=== PATIENT | female | born 1995 | race Caucasian/White ===

== ENCOUNTER 2016-08-01 00:32 | Emergency (ER) | payer SELFPAY ==
[2016-08-01] MEDS ORDERED: CLINDAMYCIN HCL 150 MG CAPSULE PO ONE (01:42)
[2016-08-01] MEDS ORDERED: CLINDAMYCIN HCL 150 MG CAPSULE ONE (01:46)
--- NOTE | 2016-08-01 01:50 | ERNOTE ---
Integumentary HPI - General Presenting Symptoms: abscess Time Seen by Provider: 08/01/16 01:19 Source: patient Exam Limitations: no limitations - Immun/Allergies/Home Medications Immunizations: IMMUNIZATION HX Immunizations Up to Date Yes History of Influenza Vaccine No Hx Pneumococcal Vaccination No Allergies/Adverse Reactions: Allergies Allergy/AdvReac Type Severity Reaction Status Date / Time cephalexin Allergy Verified 08/01/16 00:59 Home Medications: HOME MEDICATIONS Ascorbic Acid [Vitamin C] 1,000 mg PO DAILY 08/01/16 [Last Taken Unknown] Clindamycin HCl [Cleocin HCl] 300 mg PO TID #30 capsule 08/01/16 [Last Taken Unknown] Cyanocobalamin (Vitamin B-12) [Vitamin B12] 5,000 mcg PO DAILY 08/01/16 [Last Taken Unknown] Vitamin A 8,000 unit PO DAILY 08/01/16 [Last Taken Unknown] - History of Present Illness Location: Reports: torso Quality: Reports: painful Severity: moderate Exposure: Reports: no cause identified Modifying Factors - (Improves): Reports: nothing Associated Symptoms: Reports: denies symptoms Review of Systems - Review of Systems Constitutional: Absent: fever, chills EYE: Present: no symptoms reported ENT: Present: no symptoms reported Respiratory: Present: no symptoms reported Cardiology: Present: no symptoms reported Gastrointestinal/Abdominal: Present: no symptoms reported Genitourinary: Present: no symptoms reported Musculoskeletal: Present: no symptoms reported Skin: Present: See HPI Neurological: Present: no symptoms reported Endocrine: Present: no symptoms reported Hematologic/Lymphatic: Present: no symptoms reported Psych: Present: no symptoms reported - Patient's Past Medical History Patient History - Medical: No pertinent hx Patient History - Cardiac/Respiratory: No pertinent hx Patient History - Cancer: No Hx of Cancer Patient History - Surgical Procedures: T & A Patient History - Other: None LMP (females 10-50): 3 weeks LMP (Calendar): 07/12/16 - Social History Living Situations: significant other Abuse History: No History of abuse Psych History: Hx of Anxiety Smoking Status: Never smoker Alcohol Use: occasionally Drug Use: none - Immunizations Immunizations Up to Date: Yes Hx Pneumococcal Vaccination: No History of Influenza Vaccine: No Physical Exam - Physical Exam General Appearance: Present: wd/wn, alert, no apparent distress Eye Exam: Normal inspection: bilateral Ears, Nose, Throat: Present: hearing grossly normal Neck: Present: normal inspection Respiratory: Present: no respiratory distress, no accessory muscle use Gastrointestinal/Abdominal: Present: nontender - except around abscess, lower midline (see skin) Back Exam: Present: normal inspection, normal range of motion Extremity Exam: Present: normal inspection Neurological Exam: Present: alert, oriented, normal mood/affect Skin Exam: Present: other - Midline approx 2 cm below the umbilicus, 3 cm wide 1 cm sup/inf indurated and bruised pustule. No drainage Lymphatic Exam: Present: no adenopathy ED Progress - Vital Signs Vital Signs: Vital Signs 08/01/16 00:45 Temperature 37.0 C Pulse Rate 98 Respiratory 16 Rate Blood Pressure 160/97 O2 Sat by Pulse 99 Oximetry - Progress/Reassessment Chief Complaint: Abscess Procedures Lower Abdomen Date and Time: 08/01/16 01:40 I & D of abscess of lower abdomen Anesthesia: 1% Lidocaine, Local I & D Prep: betadine prep Blade Size: 11 Findings and Actions: purulent drainage moderate, probed/breakup loculation, cultures obtained, other - flushed with saline Estimated blood loss (ml): 10 Complications: Pt edwin procedure well Departure Clinical Impression: Abscess - Departure Disposition: Home Follow Up Needed Condition: Good Instructions: Incision and Drainage, Care After Additional Instructions: wash the wound with gentle soap and water twice a day Referrals: Stephanie Condon MD [Primary Care Provider] - Prescriptions: Clindamycin HCl [Cleocin HCl] 300 mg PO TID #30 capsule
[2016-08-01 01:59] VITALS: BP 152/71
--- OUTSIDE RECORDS SUMMARY | 2016-08-01 02:03 | XMS REPORT | Continuity of Care Document ---
:1995 Author Organization [facility] ([facility]) Address [address] [place] [address] Phone [phone] Care Team Providers Name Role Phone Provider, No-Primary Care Primary Care Provider Unavailable Source Comments This disclosure is being made pursuant to the Care Everywhere program, applicable federal and state laws, and may not contain all informaitonavailable regarding this patient.[facility] ([facility]) Active Allergies and Adverse Reactions Allergen Noted Date Severity Reactions Comments Cephalexin 12/09/2013 Urticaria (Hives) Current Medications Prescription Sig. Disp. Refills Start Date End Date Status HYDROcodone-acetamino Take 1 Tab by mouth 20 Tab 0 12/09/2013 Active phen 5-325 mg per every 4 hours as tablet needed for Pain. DO NOT EXCEED 3,000 MG ACETAMINOPHEN PER DAY FROM ALL SOURCES Indications: PAIN ibuprofen 800 mg Take 1 Tab by mouth 20 Tab 0 12/09/2013 Active tablet every 6 hours as needed for Pain. DO NOT EXCEED 3,200 MG IBUPROFEN PER DAY FROM ALL SOURCES Indications: PAIN Active Problems Not on file Social History Tobacco Use Types Packs/Day Years Used Date Former Smoker Cigarettes Quit: 12/09/2012 Smokeless Tobacco: Never Used Alcohol Use Drinks/Week oz/Week Comments No Last Filed Vital Signs Vital Sign Reading Time Taken Blood Pressure 124/54 12/09/2013 11:26 AM CDT Pulse - - Temperature 37 C (98.6 F) 12/09/2013 9:00 AM CDT Respiratory Rate - - Height 1.727 m (5' 8") 12/09/2013 8:55 AM CDT Weight 124.286 kg (274 lb) 12/09/2013 8:55 AM CDT Body Mass Index 41.67 12/09/2013 8:55 AM CDT Oxygen Saturation 99% 12/09/2013 11:26 AM CDT Plan of Care Health Maintenance Due Date Last Done Comments Hepatitis B Vaccine (1 of 3 - Primary Series) 1994 HPV Vaccine (1 of 3 - Female/Unknown 3 Dose Series) 2005 Tdap Vaccine 2005 Meningococcal Vaccine (1 of 1) 2010 Cervical Cancer Screening 2012 Lipid Disorder Screening 2012 MMR Vaccine 2012 Td Vaccine 2012 Varicella Vaccine (1 of 2 - Adult - No Evidence of 2012 Immunity) Influenza Vaccine: Seasonal (#1) 01/03/2016 Results from Last 3 Months Not on file
== END 2016-08-01 01:58 | disposition home or self-care (01) ==
LOC: ER 00:32
PROC: 0H97XZZ Drainage of Abdomen Skin, External Approach (ICD-10-PCS; principal; 2016-08-01)
DX: L02.211 Cutaneous abscess of abdominal wall (principal)

== ENCOUNTER 2016-12-30 03:46 | Emergency (ER) | payer OTHER ==
[2016-12-30 04:50] LABS: Hematocrit 39.4 % (37.0-47.0); Hemoglobin 12.5 gm/dL (12.5-16.0); Mean Cell Volume 77.3 fl (78-100); Mean Corpuscular Hemoglobin 24.5 pg (27-31); Mean Corpuscular Hgb Conc 31.7 g/dl (32-36); Mean Platelet Volume 9.7 fl (6.0-9.5); Neutrophil # 8.1 K/mm3 (1.3-6.0); Neutrophil % 72.3 % (42-75.0); Platelet Count 292 K/mm3 (150-450); Red Cell Distribution Width 15.9 % (11.5-14.0); Urine Bilirubin Negative (NEGATIVE); Urine Ketone Negative (NEGATIVE); Urine Nitrite Negative (NEGATIVE); Urine Protein Negative (NEGATIVE); Urine Specific Gravity 1.015 SP.GR. (1.005-1.010); Urine Urobilinogen Normal (NORMAL); Urine pH 6.5 pH (5.0-7.0); White Blood Count 11.2 K/mm3 (4.0-10.5)
[2016-12-30 05:00] LABS: Urine Amorphous Sediment Many - 3+ (NONE-FEW); Urine Appearance Cloudy; Urine Bacteria 3+; Urine Blood Negative /ul (NEGATIVE); Urine Color Dark Yellow; Urine Mucus Few - 1+
[2016-12-30 05:05] LABS: Albumin * 2.2 gm/dl (3.4-5.0); Anion Gap 13.1 mmol/L (6.8-13.8); BUN/Creatinine Ratio 16.1 (9.0-21.6); Bilirubin, Total 0.2 mg/dL (0.0-1.1); Ca. Corrected For Albumin 9.2 mg/dL (8.4-10.2); Calcium * 8.1 mg/dL (7.9-10.9); Carbon Dioxide 23.9 mmol/L (24-32.6); Total Protein 6.7 gm/dL (6.2-8.2)
--- NOTE | 2016-12-30 05:48 | ERNOTE ---
GI Bleeding/Rectal Pain ER Date of Service: 12/30/16 Presenting Symptoms: rectal bleeding, other - rectal cramping is noted. Time Seen by Provider: 12/30/16 05:13 Source: patient Immunizations: IMMUNIZATION HX Immunizations Up to Date Yes History of Influenza Vaccine No Hx Pneumococcal Vaccination No Allergies/Adverse Reactions: Allergies cephalexin Allergy (Verified 12/30/16 04:10) Home Medications: HOME MEDICATIONS Ascorbic Acid [Vitamin C] 500 mg PO DAILY 12/30/16 [Last Taken Unknown] Biotin 5,000 mcg PO DAILY 12/30/16 [Last Taken Unknown] Ferrous Sulfate [Iron] 325 mg PO DAILY 12/30/16 [Last Taken Unknown] Phenylephrine HCl/[place] Butter [Hemorrhoidal Suppositories] 1 each RC QPM PRN # 20 supp.rect 12/30/16 [Last Taken Unknown] Pnv95/Iron Fum/Folic Acid [ Vitamin Tablet] 1 each PO DAILY 12/30/16 [ Last Taken Unknown] Narrative: Patient is a 21-year-old female established patient of, [employer]TAIN doctor Lasha. she is a female approximately 24 weeks EDC of March 18 of April 18. She reports that on Sunday she had some blood mixed in with her stool by Sunday she had several spells of stools approximately 2:30 this morning she had a pretty severe rectal bleeding with significant cramping. She denies any vaginal bleeding. Date (Duration): 12/27/16 Time (Timing): 08:00 Timing: getting worse Quality/Severity: Present: severe Date of Last Bowel Movement: 12/30/16 Nausea/Vomiting: Present: other - no associated nausea vomiting or abdominal pain. She denies any periumbilical pain. Rectal Bleeding: Present: other - she reports some blood-streaked stools. And associated rectal cramping. Associated Symptoms: Reports: back pain, rectal pain, diarrhea. Denies: light headedness Prior Treament: Reports: recently seen Review of Systems - Narrative Narrative: Review of system reveals the following. - Review of Systems Constitutional: Present: no symptoms reported, recent illness. Absent: malaise , weight loss, decreased activity level EYE: Present: no symptoms reported, blurred vision, double vision ENT: Present: no symptoms reported Respiratory: Present: no symptoms reported Cardiology: Present: no symptoms reported Gastrointestinal/Abdominal: Present: no symptoms reported Genitourinary: Present: no symptoms reported Musculoskeletal: Present: no symptoms reported Skin: Present: no symptoms reported Neurological: Present: no symptoms reported Endocrine: Present: no symptoms reported Hematologic/Lymphatic: Present: no symptoms reported Psych: Present: no symptoms reported All Other Systems: All systems neg except as marked - Narrative Narrative: Past medical history, past surgical history medications allergies family history and past social history were reviewed. - Patient's Past Medical History Patient History - Medical: No pertinent hx Patient History - Cardiac/Respiratory: No pertinent hx Patient History - Cancer: No Hx of Cancer Patient History - Surgical Procedures: T & A Patient History - Other: None LMP (females 10-50): LMP (Calendar): 07/12/16 - Social History Living Situations: home Abuse History: No History of abuse Psych History: Hx of Anxiety Smoking Status: Never smoker Have you smoked in the past 12 months: No Do you dip or chew tobacco: No Patient requests Smoking Cessation Consult: No Alcohol Use: none Drug Use: none - Immunizations Immunizations Up to Date: Yes Hx Pneumococcal Vaccination: No History of Influenza Vaccine: No Physical Exam - Physical Exam Narrative: no distress. General Appearance: Present: wd/wn, alert, no apparent distress Head Exam: Present: normal inspection, no evidence of injury Eye Exam: Normal inspection: bilateral, PERRL: bilateral, EOMI: bilateral Ears, Nose, Throat: Present: normal ENT inspection, normal pharynx Neck: Present: normal inspection, nontender Respiratory: Present: no respiratory distress, normal breath sounds, no accessory muscle use, chest nontender, lungs clear Cardiovascular/Chest: Present: regular rate, rhythm, no murmur, normal peripheral pulses Peripheral Pulses: N=norm/S=strong/W=weak/B=bound/A=absent: Carotid (R): Normal , Carotid (L): Normal Gastrointestinal/Abdominal: Present: normal bowel sounds, nondistended Skin Exam: Present: normal color, warm/dry Lymphatic Exam: Present: no adenopathy ED Progress - Results and Orders Patient's Lab Results:: I have reviewed the patient's lab results. Results and Orders: Laboratory Tests 12/30/16 12/30/16 12/30/16 04:40 04:40 04:40 WBC 11.2 H RBC 5.10 Hgb 12.5 Hct 39.4 MCV 77.3 L MCH 24.5 L MCHC 31.7 L RDW 15.9 H Plt Count 292 MPV 9.7 H Immature Gran % (Auto) 0.40 Immature Gran # (Auto) 0.05 H Neutrophils % 72.3 Lymphocytes % 20.5 Monocytes % 5.2 Eosinophils % 1.3 Basophils % 0.3 Nucleated RBC % 0.0 Neutrophils # 8.1 H Lymphocytes # 2.3 Monocytes # 0.6 Eosinophils # 0.2 Absolute Basophils 0.0 Sodium 140 Potassium 4.0 Chloride 107 H Carbon Dioxide 23.9 L Anion Gap 13.1 BUN 9 Creatinine 0.56 Est GFR (Non-Af Amer) 144 H D BUN/Creatinine Ratio 16.1 Random Glucose 88 Calcium 8.1 Calcium Adj for Albumin 9.2 Total Bilirubin 0.2 AST 17 ALT 28 Alkaline Phosphatase 89 Total Protein 6.7 Albumin 2.2 L Urine Color Dark yellow Urine Appearance Cloudy Urine pH 6.5 Ur Specific [place] 1.015 Urine Protein Negative Urine Glucose (UA) Negative Urine Ketones Negative Urine Blood Negative Urine Nitrate Negative Urine Bilirubin Negative Urine Urobilinogen Normal Ur Leukocyte Esterase 75 H Urine RBC 5-10 H Urine WBC 5-10 H Ur Epithelial Cells 10-25 H Amorphous Sediment Many - 3+ H Urine Bacteria 3+ H Urine Mucus Few - 1+ H - Vital Signs Patient's Vital Signs:: I have reviewed the patient's vital signs. Vital Signs: Vital Signs 12/30/16 12/30/16 04:03 04:30 Temperature 36.2 C L 36.2 C L Pulse Rate 89 89 Respiratory 18 18 Rate Blood Pressure 152/93 152/93 O2 Sat by Pulse 97 Oximetry - Progress/Reassessment Chief Complaint: Rectal Bleeding Progress:: Re-examined - on digital rectal examination did not find any evidence of bleeding. Right red blood per rectum. Plan - Plan Plan: Patient has done stress testing at the request of the HUMAN SERVICES MANAGER and that was done 30 minutes prior to my digital rectal examination there is evidence of heart tones 150s to 165. No evidence of contractions were noted then I went ahead and did the digital rectal examination after completion of an NST Departure Clinical Impression: Internal and external bleeding hemorrhoids - Departure Disposition: Home self-care Condition: Good Instructions: High-Fiber Diet Referrals: Srinath Bone DO [Primary Care Provider] - Prescriptions: Phenylephrine HCl/[place] Butter [Hemorrhoidal Suppositories] 1 each RC QPM PRN # 20 supp.rect PRN Reason: Constipation
[2016-12-30 07:43] VITALS: BP 132/84
== END 2016-12-30 07:48 | disposition home or self-care (01) ==
LOC: ER 03:46
DX: K64.4 Residual hemorrhoidal skin tags (principal); K64.8 Other hemorrhoids; Z33.1 Pregnant state, incidental; Z3A.24 24 weeks gestation of pregnancy

== ENCOUNTER 2017-03-28 00:05 | Inpatient (IN) | payer OTHER ==
[2017-03-28] MEDS ORDERED: OXYTOCIN/DEXTROSE 5%-WATER 30 UNITS/500 ML BAG IV ONE (01:29)
[2017-03-28] MEDS ORDERED: RINGER'S SOLUTION,LACTATED 1,000 ML IV ONE (01:29)
[2017-03-28] MEDS ORDERED: ONDANSETRON HCL/PF 2 MG/ML VIAL IV PRN ×2 (01:29→22:28)
[2017-03-28] MEDS ORDERED: LIDOCAINE HCL 50 ML VIAL PERI PRN (01:29)
[2017-03-28 01:43] LABS: Hematocrit 41.4 % (37.0-47.0); Hemoglobin 13.5 gm/dL (12.5-16.0); Mean Cell Volume 80.4 fl (78-100); Mean Corpuscular Hemoglobin 26.2 pg (27-31); Mean Corpuscular Hgb Conc 32.6 g/dl (32-36); Mean Platelet Volume 10.2 fl (6.0-9.5); Neutrophil # 11.5 K/mm3 (1.3-6.0); Neutrophil % 77.5 % (42-75.0); Platelet Count 288 K/mm3 (150-450); Red Blood Count 5.15 M/mm3 (4.2-5.4); Red Cell Distribution Width 16.1 % (11.5-14.0); White Blood Count 14.9 K/mm3 (4.0-10.5)
[2017-03-28 01:57] LABS: Albumin * 2.3 gm/dl (3.4-5.0); Anion Gap 11.8 mmol/L (6.8-13.8); BUN/Creatinine Ratio 12.7 (9.0-21.6); Bilirubin, Total 0.1 mg/dL (0.0-1.1); Ca. Corrected For Albumin 9.6 mg/dL (8.4-10.2); Calcium * 8.6 mg/dL (7.9-10.9); Carbon Dioxide 23.2 mmol/L (24-32.6); Total Protein 7.1 gm/dL (6.2-8.2)
[2017-03-28] MEDS ORDERED: PENICILLIN G POTASSIUM 5 MILLIONUNT in DEXTROSE 5 % IN WATER 100 ML IV ONE ×2 (02:00)
[2017-03-28] MEDS: MISOPROSTOL 100 MCG TABLET VG PRN ×3 (02:07→10:34)
[2017-03-28 04:12] LABS: Cocaine Ur Negative (NEGATIVE); Urine Barbiturate Negative (NEGATIVE); Urine Benzodiazepines Negative (NEGATIVE); Urine Opiates Negative (NEGATIVE); Urine PCP Negative (NEGATIVE); Urine THC Negative (NEGATIVE)
[2017-03-28] MEDS: PENICILLIN G POTASSIUM 2.5 MILLIONUNT in DEXTROSE 5 % IN WATER 100 ML IV SCH ×10 (06:55→21:58)
--- NOTE | 2017-03-28 07:06 | PN ---
Progess Note - Interim Narrative: 03/28/17 07:04 Patient starting to feel some of her contractions Vital signs stable. Status post 1 dose of Cytotec 25 g FHT: 120 baseline, reassuring Contractions irregular Cervix: 3, second dose of Cytotec 25 g placed vaginally Impression: Intrauterine at 37 weeks induction of labor for gestational hypertension/preeclampsia Plan: Continue present plan
[2017-03-28] MEDS ORDERED: NALOXONE HCL 1 MG/1 ML SYRG IV PRN (22:28)
[2017-03-28] MEDS ORDERED: fentaNYL CITRATE/PF 50 MCG/ML AMPUL ONE (22:41)
[2017-03-28] MEDS: fentaNYL CITRATE/PF 50 MCG/ML AMPUL IT SCH (23:00)
[2017-03-28] MEDS: DEXTROSE 5%-LACTATED RINGERS 1,000 ML IV PRN (23:08)
--- NOTE | 2017-03-28 23:15 | OR ---
Anesthesia Procedure Note - Anesthesia Procedure Note Narrative: Vital Signs - Last Taken Temp 35.5 C L 03/28/17 22:46 Pulse 79 03/28/17 22:46 Resp 18 03/28/17 22:46 BP 179/80 03/28/17 22:46 Pulse Ox 98 03/28/17 22:46 03/28/17 23:14 ANESTHESIA PROCEDURE NOTE Date of Procedure: 03/28/2017 Time of procedure: 2305. Performed by: Theodore Linton CRNA Gis Geographer: None. Preprocedure diagnosis: Active labor. Post procedure diagnosis: Same. Procedure: Insertion of labor epidural. Indications: The patient is a 21 -year-old multigravida female in active labor requesting labor epidural for pain management. Findings: See below. Details of the procedure: The patient was placed in a sitting position. Back was prepped with DuraPrep. Patient was then draped in a sterile fashion. Lidocaine 1% was infiltrated to the skin and subcutaneous tissues at the level of the L3 4 interspace. The epidural space was identified using a 18-gauge Tuohy needle with [id number] technique. 20 mcg fentanyl was given intrathecally using a 27 ga. spinal needle. Epidural catheter was inserted without difficulty. Negative test dose was elicited using 5 mL of 1.5% preservative-free lidocaine plus epinephrine 1 200,000. The epidural catheter was then taped and secured in place. EBL: Minimal. Fluids: N/A. Specimen: N/A. Post procedure condition: The patient tolerated the procedure well. No complications were noted. Thank you for this consultation. Edwards CRNA
[2017-03-28] MEDS ORDERED: BUPIVACAINE HCL/0.9 % NACL/PF 250 ML CARTRIDGE ONE (23:24)
[2017-03-28] MEDS ORDERED: BUPIVACAINE HCL/0.9 % NACL/PF 250 ML EP PRN (23:28)
[2017-03-29] MEDS: PENICILLIN G POTASSIUM 2.5 MILLIONUNT in DEXTROSE 5 % IN WATER 100 ML IV SCH ×8 (02:29→13:58)
[2017-03-29] MEDS ORDERED: fentaNYL CITRATE/PF 50 MCG/ML AMPUL IT ONE (04:49)
[2017-03-29] MEDS ORDERED: fentaNYL CITRATE/PF 50 MCG/ML AMPUL ONE (04:52)
[2017-03-29] MEDS: fentaNYL CITRATE/PF 50 MCG/ML AMPUL IT SCH (05:04)
[2017-03-29] MEDS: DEXTROSE 5%-LACTATED RINGERS 1,000 ML IV PRN ×2 (05:06→13:37)
--- NOTE | 2017-03-29 05:24 | OR ---
Anesthesia Procedure Note - Anesthesia Procedure Note Narrative: Vital Signs - Last Taken Temp 35.5 C L 03/28/17 22:46 Pulse 79 03/28/17 22:46 Resp 18 03/28/17 22:46 BP 179/80 03/28/17 22:46 Pulse Ox 98 03/28/17 22:46 03/29/17 05:20 ANESTHESIA PROCEDURE NOTE Date of Procedure: 03/29/2017 Time of procedure: 10 11. Performed by: Theodore Linton CRNA Home Agent: None. Preprocedure diagnosis: Active labor. Post procedure diagnosis: Same. Procedure: Reinsertion of labor epidural. Indications: Patient complains of labor pain. On examination it is noted that indwelling epidural catheter has migrated out of the epidural space. Epidural catheter was removed intact. And new epidural placed as below Findings: See below. Details of the procedure: The patient was placed in a sitting position. Back was prepped with DuraPrep. Patient was then draped in a sterile fashion. Lidocaine 1% was infiltrated to the skin and subcutaneous tissues at the level of the L L2 3 interspace. The epidural space was identified using a 18-gauge Tuohy needle with [id number] technique. 20 mcg fentanyl was given intrathecally using a 27 ga. spinal needle. Epidural catheter was inserted without difficulty. Negative test dose was elicited using 5 mL of 1.5% preservative-free lidocaine plus epinephrine 1 200,000. The epidural catheter was then taped and secured in place. EBL: Minimal. Fluids: N/A. Specimen: N/A. Post procedure condition: The patient tolerated the procedure well. No complications were noted. Thank you for this consultation. Edwards CRNA
--- NOTE | 2017-03-29 12:51 | PN ---
Progess Note - Interim Narrative: 03/29/17 12:49 Patient comfortable with epidural Vital signs stable. Systolic blood pressures running from 130s to 150s, diastolic blood pressures running 60s to 100. Pitocin at 6 mu/min. FHT: 130 baseline, reassuring Contractions q 2-4 min Cervix: 3/60/-3, AROM-clear at 1210 Impression: Intrauterine at 37-1/7 weeks induction of labor for preeclampsia/gestational hypertension Plan: Continue present plan
[2017-03-29] MEDS ORDERED: SENNOSIDES 8.6 MG TABLET PO PRN (16:54)
[2017-03-29] MEDS ORDERED: BISACODYL 10 MG SUPP.RECT RC PRN (16:54)
[2017-03-29] MEDS ORDERED: BENZOCAINE/MENTHOL 81 SPRAY CAN TP PRN (16:54)
[2017-03-29] MEDS ORDERED: OXYTOCIN/DEXTROSE 5%-WATER 30 UNITS/500 ML BAG IV ONE (16:54)
[2017-03-29] MEDS ORDERED: GLYCERIN/WITCH HAZEL LEAF 40 APPL BOX TP PRN (16:54)
[2017-03-29] MEDS ORDERED: HYDROCORTISONE 30 APPL TUBE TP PRN (16:54)
[2017-03-29] MEDS ORDERED: oxyCODONE HCL/ACETAMINOPHEN 1 TAB TABLET PO PRN ×2 (16:54)
--- NOTE | 2017-03-29 17:08 | OR ---
Operative Report - Dictated Report Narrative: Spontaneous vaginal deliver of viable male on 03/29/17 at 16:35 with APGARs of 8 and 9, weighing 2826g in NEGRITA position. Cord clamping was delayed approximately one minute. Placenta was delivered complete, intact, with a three vessel cord. Estimated blood loss: less than 100 mL Lacerations: Small periurethral abrasion no repair needed
[2017-03-29] MEDS: IBUPROFEN 800 MG TABLET PO PRN (20:47)
[2017-03-29] MEDS: DOCUSATE SODIUM 100 MG CAPSULE PO SCH (20:47)
[2017-03-30] MEDS: IBUPROFEN 800 MG TABLET PO PRN ×2 (03:36→09:35)
[2017-03-30] MEDS: DOCUSATE SODIUM 100 MG CAPSULE PO SCH ×2 (09:24→22:43)
[2017-03-31] MEDS: IBUPROFEN 800 MG TABLET PO PRN ×2 (01:40→16:28)
[2017-03-31] MEDS: DOCUSATE SODIUM 100 MG CAPSULE PO SCH (10:15)
[2017-03-31 10:28] VITALS: BP 135/81
--- NOTE | 2017-03-31 11:47 | PN ---
Progess Note - Interim Narrative: 03/31/17 11:46 progress note Subjective: The patient is doing well. She is ambulating, voiding, tolerating by mouth. She has minimal pain and moderate lochia. Denies headache, blurry vision, epigastric pain, or edema. Objective: General: No acute distress Abdomen: Soft, nontender, fundus is firm just below the umbilicus Extremities: minimal edema, nontender to palpation Assessment and plan: day 2 Feeding: Breast Pain: Controlled with by mouth medication Preeclampsia: Blood pressures have normalized, asymptomatic Follow-up in 1 week for blood pressure check Routine care.
--- NOTE | 2017-04-05 17:50 | PN ---
Progess Note - Interim Narrative: 04/05/17 17:50 Late entry for patient seen on 03/30/2017 Patient denies complaints. Lochia wnl Abdomen - soft, nontender Uterus - firm, at umbilicus - 1 No calf tenderness Impression: day #1 - s/p spontaneous vaginal delivery. Plan: Continue routine care
== END 2017-03-31 16:35 | disposition home or self-care (01) | DRG 775 ==
LOC: OB 00:05 → MS 03-30 09:39
PROVIDERS: ADMIT Obstetrics & Gynecology; ATTEND Obstetrics & Gynecology
PROC: 10E0XZZ Delivery of Products of Conception, External Approach (ICD-10-PCS; principal; 2017-03-29)
PROC: 10907ZC Drainage of Amniotic Fluid, Therapeutic from Products of Conception, Via Natural or Artificial Opening (ICD-10-PCS; 2017-03-29)
PROC: 4A1HXCZ Monitoring of Products of Conception, Cardiac Rate, External Approach (ICD-10-PCS; 2017-03-29)
PROC: 00HU33Z Insertion of Infusion Device into Spinal Canal, Percutaneous Approach (ICD-10-PCS; 2017-03-29)
DX: O14.94 Unspecified pre-eclampsia, complicating childbirth (principal); Z68.42 Body mass index [BMI] 45.0-49.9, adult; O13.4 Gestational [pregnancy-induced] hypertension without significant proteinuria, complicating childbirth; O99.824 Streptococcus B carrier state complicating childbirth; O99.214 Obesity complicating childbirth; E66.01 Morbid (severe) obesity due to excess calories; Z3A.37 37 weeks gestation of pregnancy; Z37.0 Single live birth; Z22.322 Carrier or suspected carrier of Methicillin resistant Staphylococcus aureus
CPT/HCPCS: 36415; 59025; 80053; 80307; 85025; 88307; J2405